=== PATIENT | male | born 1960 | race Caucasian/White ===

== ENCOUNTER 2025-04-29 14:23 | Day surgery (SDC) | payer OTHER ==
[2025-04-29] MEDS ORDERED: methylPREDNISolone acetate IM ONE (14:24)
[2025-04-29] MEDS ORDERED: LIDOCAINE HCL 1% 50 MG/5 ML VL IJ ONE (14:24)
[2025-04-29] MEDS ORDERED: BUPIVACAINE 0.5% VIAL IJ ONE (14:24)
--- NOTE | 2025-04-29 17:36 | XRAY ---
Indication: Right knee injection. Intraoperative fluoroscopy provided for 11 seconds. Single digital spot image submitted for interpretation demonstrates needle tip projecting over right femur intercondylar notch. Small amount of contrast injected for needle tip placement. Correlate with intraoperative findings/report.
--- NOTE | 2025-04-29 17:36 | XRAY ---
11 seconds of fluoroscopy were used in surgery for a right intra-articular knee injection.
== END 2025-04-29 17:14 | disposition home or self-care (01) ==
LOC: SDC-PAIN 14:23
PROVIDERS: ATTEND Psychiatry & Neurology Pain Medicine
DX: M17.11 Unilateral primary osteoarthritis, right knee (principal); E11.9 Type 2 diabetes mellitus without complications